=== PATIENT | male | born 1950 | race Caucasian/White ===

== ENCOUNTER 2016-07-29 11:45 | Outpatient (CLI) | payer MEDICARE, BC, OTHER | END 2016-07-29 11:46 | disposition home or self-care (01) | DX: C83.13 Mantle cell lymphoma, intra-abdominal lymph nodes (principal) ==

== ENCOUNTER 2016-08-17 12:06 | Outpatient (CLI) | payer MEDICARE, BC, OTHER | END 2016-08-17 12:07 | disposition home or self-care (01) | DX: C83.13 Mantle cell lymphoma, intra-abdominal lymph nodes (principal) ==

== ENCOUNTER 2016-08-21 11:50 | Outpatient (CLI) | payer MEDICARE, BC, OTHER | END 2016-08-21 11:51 | disposition home or self-care (01) | DX: C83.13 Mantle cell lymphoma, intra-abdominal lymph nodes (principal) ==

== ENCOUNTER 2016-08-25 13:29 | Outpatient (CLI) | payer MEDICARE, BC, OTHER | END 2016-08-25 13:30 | disposition home or self-care (01) | DX: C83.13 Mantle cell lymphoma, intra-abdominal lymph nodes (principal) ==

== ENCOUNTER 2016-08-28 10:57 | Outpatient (CLI) | payer MEDICARE, BC, OTHER | END 2016-08-28 10:58 | disposition home or self-care (01) | DX: C83.13 Mantle cell lymphoma, intra-abdominal lymph nodes (principal) ==

== ENCOUNTER 2016-09-01 15:09 | Outpatient (CLI) | payer MEDICARE, BC, OTHER | END 2016-09-01 15:10 | disposition home or self-care (01) | DX: C83.13 Mantle cell lymphoma, intra-abdominal lymph nodes (principal) ==

== ENCOUNTER 2016-09-04 09:57 | Outpatient (CLI) | payer MEDICARE, BC, OTHER | END 2016-09-04 09:58 | disposition home or self-care (01) | DX: C83.13 Mantle cell lymphoma, intra-abdominal lymph nodes (principal) ==

== ENCOUNTER 2016-09-07 09:45 | Outpatient (CLI) | payer MEDICARE, BC, OTHER ==
[2016-09-07 10:12] LABS: BASOPHILS % (AUTO) 1.5 %; EOSINOPHILS % (AUTO) 2.2 %; HCT - HEMATOCRIT 31.7 % (42.0-52.0); HGB - HEMOGLOBIN 10.9 g/dL (14.0-18.0); LYMPHOCYTES # (AUTO) 0.6 10^3/uL (1.5-3.5); MEAN CORPUSCULAR HEMOGLOBIN 35.8 pg (27.0-31.0); MEAN CORPUSCULAR HGB CONC 34.3 g/dL (32.0-36.0); MEAN CORPUSCULAR VOLUME 104.4 fL (80.0-94.0); MONOCYTES # (AUTO) 0.6 10^3/uL (0.0-1.0); MONOCYTES % (AUTO) 30.2 %; NEUTROPHILS % (AUTO) 33.1 %; NUCLEATED RED BLOOD CELLS AUTO 0.1 /100WBC; RED BLOOD COUNT 3.03 10^6/uL (4.70-6.10); RED CELL DISTRIBUTION WIDTH 16.5 % (12.0-15.0); UNCORRECTED WHITE BLOOD COUNT 1.9 x10^3/uL
[2016-09-07 10:22] LABS: NEUTROPHILS # (AUTO) 0.6 10^3/uL (1.5-6.6); WHITE BLOOD COUNT 1.9 x10^3/uL (4.8-10.8)
== END 2016-09-07 09:46 | disposition home or self-care (01) ==
LOC: LAB 09:45
PROVIDERS: ATTEND Internal Medicine Medical Oncology
DX: C83.13 Mantle cell lymphoma, intra-abdominal lymph nodes (principal)
CPT/HCPCS: 36415; 85025

== ENCOUNTER 2016-09-10 10:21 | Outpatient (CLI) | payer MEDICARE, BC, OTHER | END 2016-09-10 10:22 | disposition home or self-care (01) | DX: C83.13 Mantle cell lymphoma, intra-abdominal lymph nodes (principal) ==

== ENCOUNTER 2016-09-15 10:09 | Outpatient (CLI) | payer MEDICARE, BC, OTHER | END 2016-09-15 10:10 | disposition home or self-care (01) | DX: C83.13 Mantle cell lymphoma, intra-abdominal lymph nodes (principal) ==

== ENCOUNTER 2016-10-02 12:01 | Outpatient (CLI) | payer MEDICARE, BC, OTHER | END 2016-10-02 12:02 | disposition home or self-care (01) | DX: C83.13 Mantle cell lymphoma, intra-abdominal lymph nodes (principal) ==

== ENCOUNTER 2016-10-05 15:21 | Outpatient (CLI) | payer MEDICARE, BC, OTHER | END 2016-10-05 15:22 | disposition home or self-care (01) | DX: C83.13 Mantle cell lymphoma, intra-abdominal lymph nodes (principal) ==

== ENCOUNTER 2016-10-08 10:00 | Outpatient (CLI) | payer MEDICARE, BC, OTHER | END 2016-10-08 10:01 | disposition home or self-care (01) | DX: C83.13 Mantle cell lymphoma, intra-abdominal lymph nodes (principal) ==

== ENCOUNTER 2016-10-12 12:28 | Outpatient (CLI) | payer MEDICARE, BC, OTHER | END 2016-10-12 12:29 | disposition home or self-care (01) | DX: C83.13 Mantle cell lymphoma, intra-abdominal lymph nodes (principal) ==

== ENCOUNTER 2016-12-17 11:17 | Outpatient (CLI) | payer MEDICARE, BC, OTHER ==
--- NOTE | 2016-12-17 19:03 | CT Report ---
CT OF THE SINUSES: 12/17/2016 CLINICAL HISTORY: Chronic sinusitis. TECHNIQUE: Axial, sagittal, and coronal CT was done at 3 x 3 mm intervals. FINDINGS: Moderate degree of mucosal thickening and/or fluid is noted in the right maxillary sinus; 35% of the sinus is opacified by this mucosal thickening and/or fluid. Left maxillary sinus shows fluid and mucosal thickening within it producing 60% to 70% opacification in this sinus. Ethmoidal sinuses demonstrate a moderate amount of mucosal thickening with at least 50% of the sinus opacified. Mucosal thickening is seen in the proximal aspect of each frontal sinus. Sphenoid sinus shows no significant opacification. IMPRESSION: SIGNIFICANT SINUSITIS IS SEEN WITH MOST PRONOUNCED CHANGES RESIDING IN THE MAXILLARY AND ETHMOIDAL SINUSES. In accordance with CT protocol optimization, one or more of the following dose reduction techniques were utilized for this exam: automated exposure control, adjustment of mA and/or KV based on patient size, or use of iterative reconstructive technique. COMMENT: REPORT WAS FAXED TO PATIENT'S HEALTHCARE PROVIDER ON 12/18/2016 AT 8 AM. JOB #: [id number] EXT JOB #: [id number] LATISHA
== END 2016-12-17 11:18 | disposition home or self-care (01) ==
LOC: DI 11:17
PROVIDERS: ATTEND Family Medicine
DX: J32.0 Chronic maxillary sinusitis (principal); J32.2 Chronic ethmoidal sinusitis
CPT/HCPCS: 70486

== ENCOUNTER 2017-05-22 16:15 | Emergency (ER) | payer MEDICARE, BC, OTHER ==
[2017-05-22] MEDS ORDERED: SODIUM CHLORIDE 0.9% 1,000 ML IV ONE ×2 (17:16→18:49)
[2017-05-22] MEDS ORDERED: ONDANSETRON 4 MG/2 ML VIAL IVP STA (17:16)
[2017-05-22 17:24] LABS: BASOPHILS % (AUTO) 0.4 %; EOSINOPHILS # (AUTO) 0.1 10^3/uL (0.0-0.7); EOSINOPHILS % (AUTO) 1.2 %; HCT - HEMATOCRIT 38.5 % (42.0-52.0); LYMPHOCYTES # (AUTO) 0.6 10^3/uL (1.5-3.5); MEAN CORPUSCULAR HEMOGLOBIN 33.8 pg (27.0-31.0); MEAN CORPUSCULAR HGB CONC 33.7 g/dL (32.0-36.0); MEAN CORPUSCULAR VOLUME 100.1 fL (80.0-94.0); MEAN PLATELET VOLUME 6.5 fL (7.4-11.4); MONOCYTES # (AUTO) 0.6 10^3/uL (0.0-1.0); MONOCYTES % (AUTO) 10.8 %; NEUTROPHILS # (AUTO) 4.6 10^3/uL (1.5-6.6); NEUTROPHILS % (AUTO) 77.6 %; NUCLEATED RED BLOOD CELLS AUTO 0.1 /100WBC; RED BLOOD COUNT 3.85 10^6/uL (4.70-6.10); RED CELL DISTRIBUTION WIDTH 13.4 % (12.0-15.0)
--- NOTE | 2017-05-22 17:25 | ED Physician Documentation ---
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 denies: Diarrhea Endocrine: denies: Easy bruising / bleeding Immunocompromised: denies: Immunocompromised PD PAST MEDICAL HISTORY - Past Medical History Cardiovascular: None Respiratory: None Neuro: None Endocrine/Autoimmune: None GI: Other : None HEENT: None Psych: None Musculoskeletal: None Derm: None - Past Surgical History Past Surgical History: Yes HEENT: Tonsil/Adenoidectomy - Present Medications Home Medications: Ambulatory Orders Medication Instructions Recorded Confirmed Valacyclovir HCl [Valtrex] 500 mg PO BID 12/18/15 05/22/17 Calcium Phos/Vit D3/Mag Oxide 1 tab ORAL DAILY 01/07/17 05/22/17 [Posture-D Caplet] Cholecalciferol (Vitamin D3) 2,000 unit ORAL DAILY 01/07/17 05/22/17 [Vitamin D3] Multivitamin [Multiple Vitamins] 1 tab ORAL DAILY 01/07/17 05/22/17 Cetirizine [ZyrTEC] 10 mg PO DAILY 01/15/17 05/22/17 Fluticasone [Flonase] 1 sprays [place] DAILY 01/15/17 05/22/17 Mupirocin Calcium [Bactroban Nasal] 1 applic [place] DAILY 01/15/17 05/22/17 Pseudoephedrine [Sudafed] 30 mg PO Q6H PRN 01/15/17 05/22/17 guaiFENesin/CODEINE [Robitussin AC] 10 ml PO Q6H PRN 01/15/17 05/22/17 - Allergies Allergies/Adverse Reactions: Allergies Allergy/AdvReac Type Severity Reaction Status Date / Time Penicillins Allergy Edema Verified 05/22/17 16:23 levofloxacin [From Levaquin] AdvReac Nausea Verified 05/22/17 16:23 hazelnuts Allergy Edema Uncoded 05/22/17 16:23 - Social History Does the pt smoke?: No Smoking Status: Never smoker Does the pt drink ETOH?: Yes Does the pt have substance abuse?: No - Immunizations Immunizations are current?: Yes PD ED PE NORMAL - Vitals Vital signs reviewed: Yes - General General: Alert and oriented X 3 - HEENT HEENT: PERRL - Neck Neck: Supple, no meningeal sign - Cardiac Cardiac: RRR - Respiratory Respiratory: No respiratory distress, Clear bilaterally - Abdomen Abdomen: Other (+ BS, minimally distended, some mid abd TTP s rebound or guarding, no pulsatile mass) - Derm Derm: Normal color - Neuro Neuro: Alert and oriented X 3 - Psych Psych: Normal mood Results - Vitals Vitals: Vital Signs - 24 hr 05/22/17 05/22/17 16:17 18:55 Temperature 36.0 C L Heart Rate 82 74 Respiratory 16 18 Rate Blood Pressure 122/82 H 141/88 H O2 Saturation 97 100 Oxygen O2 Source Room air - Labs Labs: Laboratory Tests 05/22/17 05/22/17 05/22/17 17:16 17:16 17:19 WBC 6.0 RBC 3.85 L Hgb 13.0 L Hct 38.5 L MCV 100.1 H MCH 33.8 H MCHC 33.7 RDW 13.4 Plt Count 319 MPV 6.5 L Neut # 4.6 Lymph # 0.6 L [place] # 0.6 Eos # 0.1 Baso # 0.0 Absolute Nucleated RBC 0.01 Nucleated RBC % 0.1 Sodium 133 L Potassium 4.1 Chloride 98 L Carbon Dioxide 26 Anion Gap 9.0 BUN 18 Creatinine 1.0 Estimated GFR (MDRD) 74 L Glucose 119 H Calcium 8.9 Total Bilirubin 0.7 AST 21 ALT 19 Alkaline Phosphatase 67 Total Protein 6.5 L Albumin 3.5 Globulin 3.0 Albumin/Globulin Ratio 1.2 Lipase 14 L Urine Color YELLOW Urine Clarity CLEAR Urine pH 6.0 Ur Specific [place] >=1.030 H Urine Protein TRACE Urine Glucose (UA) NEGATIVE Urine Ketones 40 H Urine Occult Blood NEGATIVE Urine Nitrite NEGATIVE Urine Bilirubin NEGATIVE Urine Urobilinogen 0.2 (NORMAL) Ur Leukocyte Esterase NEGATIVE Ur Microscopic Review NOT INDICATED Urine Culture Comments NOT INDICATED - Rads (name of study) CT AP Radiology: See rad report (large soft tissue mass anterior upper pelvis 10X 4.2 X 8.3 cm with associated small bowel obstruction and trace ascites) PD MEDICAL DECISION MAKING - ED course ED course: spoke to [facility] research nutritionist Dr Khan who rec admit to hospitalist service so also spoke with [facility] hospitalist Dr Lackey and he accepts pt in transfer [facility] completed pt has NG in and he and family have been updated Departure - Departure Disposition: 02 Transfer Acute Care Hosp Clinical Impression: Small bowel obstruction Abdominal mass Qualifiers: Abdominal location: unspecified location Qualified Code(s): R19.00 - Intra- abdominal and pelvic swelling, mass and lump, unspecified site Condition: Fair
[2017-05-22 17:29] LABS: BILIRUBIN,URINE NEGATIVE (NEGATIVE)
[2017-05-22 17:31] LABS: UA CHARGE (STRIP ONLY) YES; UR CULTURE IF IND NOT INDICATED
[2017-05-22] MEDS ORDERED: ONDANSETRON 4 MG/2 ML VIAL ONE (17:31)
[2017-05-22 17:40] LABS: ALBUMIN/GLOBULIN RATIO 1.2 (1.0-2.2); BILIRUBIN,TOTAL 0.7 mg/dL (0.2-1.0); CALCIUM 8.9 mg/dL (8.5-10.3); POTASSIUM 4.1 mmol/L (3.5-5.0); TOTAL PROTEIN 6.5 g/dL (6.7-8.2)
--- NOTE | 2017-05-22 18:28 | CT Preliminary Report ---
Exam: CT ABDOMEN/PELVIS W/O IMPRESSION: Large soft tissue mass in the anterior upper pelvis 10.0 x 4.2 x 8.3 cm with associated mid small bowel obstruction and trace ascites. [facility] SITE ID: [id number]
--- NOTE | 2017-05-22 18:30 | CT Report ---
EXAM: CT ABDOMEN AND PELVIS EXAM DATE: 05/22/2017 06:08 PM. CLINICAL HISTORY: Abdomen pain. Nausea and vomiting. History of tumor with small bowel obstruction. COMPARISONS: 03/31/2016. TECHNIQUE: Routine helical CT imaging was performed through the abdomen and pelvis. IV contrast: None . Enteric contrast: No. Reconstructions: Coronal and sagittal. In accordance with CT protocol optimization, one or more of the following dose reduction techniques w ere utilized for this exam: automated exposure control, adjustment of mA and/or KV based on patient s ize, or use of iterative reconstructive technique. FINDINGS: Lung Bases: Unremarkable. Liver: Normal. No masses. Gallbladder/Bile Ducts: Unremarkable. Spleen: Normal. Pancreas: Normal. Adrenal Glands: Normal. Kidneys: Normal. No masses or hydronephrosis. Peritoneal Cavity/Bowel: Trace free fluid. No free air. Large soft tissue mass in the upper pelvis 10 .0 x 4.2 x 8.3 cm with associated small bowel obstruction. Mildly enlarged right lower quadrant mesen teric lymph nodes. Nonvisualized appendix. Pelvic Organs: The prostate and bladder are unremarkable. Vasculature: No aneurysms or other significant abnormality. Bones: No significant abnormality. Other: None. IMPRESSION: Large soft tissue mass in the anterior upper pelvis with associated mid small bowel obstr uction and trace ascites. [facility] Referring Provider Line: [phone] SITE ID: [id number]
[2017-05-22 20:26] VITALS: BP 143/79
== END 2017-05-22 20:26 | disposition short-term general hospital (02) ==
LOC: ED 16:15
DX: K56.609 Unspecified intestinal obstruction, unspecified as to partial versus complete obstruction (principal); R19.00 Intra-abdominal and pelvic swelling, mass and lump, unspecified site
CPT/HCPCS: 36415; 74176; 80053; 81001; 81003; 83690; 85025; 87086; 96361; 96374; 99284

== ENCOUNTER 2017-06-09 10:43 | Outpatient (CLI) | payer MEDICARE, BC, OTHER ==
[2017-06-09 11:07] LABS: BASOPHILS % (AUTO) 0.8 %; EOSINOPHILS % (AUTO) 1.4 %; HCT - HEMATOCRIT 30.4 % (42.0-52.0); HGB - HEMOGLOBIN 10.2 g/dL (14.0-18.0); LYMPHOCYTES # (AUTO) 0.4 10^3/uL (1.5-3.5); LYMPHOCYTES % (AUTO) 13.8 %; MEAN CORPUSCULAR HEMOGLOBIN 33.8 pg (27.0-31.0); MEAN CORPUSCULAR HGB CONC 33.6 g/dL (32.0-36.0); MEAN CORPUSCULAR VOLUME 100.6 fL (80.0-94.0); MEAN PLATELET VOLUME 8.2 fL (7.4-11.4); MONOCYTES # (AUTO) 0.2 10^3/uL (0.0-1.0); MONOCYTES % (AUTO) 6.8 %; NEUTROPHILS # (AUTO) 2.4 10^3/uL (1.5-6.6); NEUTROPHILS % (AUTO) 77.2 %; NUCLEATED RED BLOOD CELLS AUTO 0.1 /100WBC; RED BLOOD COUNT 3.02 10^6/uL (4.70-6.10); RED CELL DISTRIBUTION WIDTH 12.8 % (12.0-15.0); UNCORRECTED WHITE BLOOD COUNT 3.2 x10^3/uL; WHITE BLOOD COUNT 3.2 x10^3/uL (4.8-10.8)
[2017-06-09 11:29] LABS: PLATELET ESTIMATE, MANUAL DECREASED (<130,000) (NORMAL)
== END 2017-06-09 10:44 | disposition home or self-care (01) ==
LOC: LAB 10:43
PROVIDERS: ATTEND Internal Medicine Medical Oncology
DX: C83.13 Mantle cell lymphoma, intra-abdominal lymph nodes (principal)
CPT/HCPCS: 36415; 85025

== ENCOUNTER 2017-06-14 11:32 | Outpatient (CLI) | payer MEDICARE, BC, OTHER ==
[2017-06-14 12:28] LABS: BASOPHILS % (AUTO) 0.2 %; EOSINOPHILS % (AUTO) 0.6 %; HGB - HEMOGLOBIN 10.2 g/dL (14.0-18.0); LYMPHOCYTES # (AUTO) 0.7 10^3/uL (1.5-3.5); LYMPHOCYTES % (AUTO) 20.4 %; MEAN PLATELET VOLUME 8.6 fL (7.4-11.4); MONOCYTES # (AUTO) 0.5 10^3/uL (0.0-1.0); MONOCYTES % (AUTO) 15.3 %; NEUTROPHILS # (AUTO) 2.2 10^3/uL (1.5-6.6); NEUTROPHILS % (AUTO) 63.5 %; NUCLEATED RED BLOOD CELLS AUTO 0.1 /100WBC; RED CELL DISTRIBUTION WIDTH 12.8 % (12.0-15.0); UNCORRECTED WHITE BLOOD COUNT 3.4 x10^3/uL; WHITE BLOOD COUNT 3.4 x10^3/uL (4.8-10.8)
[2017-06-14 12:45] LABS: PLATELET ESTIMATE, MANUAL DECREASED (<130,000) (NORMAL); PLATELET MORPHOLOGY NORMAL APPEARANCE (NORMAL)
== END 2017-06-14 11:33 | disposition home or self-care (01) ==
LOC: LAB 11:32
PROVIDERS: ATTEND Internal Medicine Medical Oncology
DX: C83.13 Mantle cell lymphoma, intra-abdominal lymph nodes (principal)
CPT/HCPCS: 36415; 85025

== ENCOUNTER 2017-06-21 11:44 | Outpatient (CLI) | payer MEDICARE, BC, OTHER ==
[2017-06-21 12:19] LABS: BASOPHILS % (AUTO) 0.5 %; EOSINOPHILS % (AUTO) 0.8 %; HCT - HEMATOCRIT 30.7 % (42.0-52.0); HGB - HEMOGLOBIN 10.7 g/dL (14.0-18.0); LYMPHOCYTES # (AUTO) 0.8 10^3/uL (1.5-3.5); LYMPHOCYTES % (AUTO) 19.6 %; MEAN CORPUSCULAR HEMOGLOBIN 34.7 pg (27.0-31.0); MEAN CORPUSCULAR HGB CONC 34.8 g/dL (32.0-36.0); MEAN CORPUSCULAR VOLUME 99.8 fL (80.0-94.0); MEAN PLATELET VOLUME 6.9 fL (7.4-11.4); MONOCYTES # (AUTO) 0.8 10^3/uL (0.0-1.0); MONOCYTES % (AUTO) 20.1 %; NEUTROPHILS # (AUTO) 2.3 10^3/uL (1.5-6.6); NUCLEATED RED BLOOD CELLS AUTO 0.3 /100WBC; RED BLOOD COUNT 3.07 10^6/uL (4.70-6.10); RED CELL DISTRIBUTION WIDTH 13.6 % (12.0-15.0); UNCORRECTED WHITE BLOOD COUNT 3.9 x10^3/uL; WHITE BLOOD COUNT 3.9 x10^3/uL (4.8-10.8)
== END 2017-06-21 11:45 | disposition home or self-care (01) ==
LOC: LAB 11:44
PROVIDERS: ATTEND Internal Medicine Medical Oncology
DX: C83.13 Mantle cell lymphoma, intra-abdominal lymph nodes (principal)
CPT/HCPCS: 36415; 85025

== ENCOUNTER 2017-07-12 10:30 | Outpatient (CLI) | payer MEDICARE, BC, OTHER ==
[2017-07-12 10:58] LABS: BASOPHILS % (AUTO) 0.6 %; EOSINOPHILS % (AUTO) 0.8 %; HCT - HEMATOCRIT 27.7 % (42.0-52.0); HGB - HEMOGLOBIN 9.5 g/dL (14.0-18.0); LYMPHOCYTES # (AUTO) 0.6 10^3/uL (1.5-3.5); LYMPHOCYTES % (AUTO) 11.7 %; MEAN CORPUSCULAR HEMOGLOBIN 34.7 pg (27.0-31.0); MEAN CORPUSCULAR HGB CONC 34.4 g/dL (32.0-36.0); MEAN CORPUSCULAR VOLUME 100.9 fL (80.0-94.0); MEAN PLATELET VOLUME 8.1 fL (7.4-11.4); MONOCYTES # (AUTO) 0.6 10^3/uL (0.0-1.0); MONOCYTES % (AUTO) 10.9 %; NEUTROPHILS # (AUTO) 3.9 10^3/uL (1.5-6.6); NUCLEATED RED BLOOD CELLS AUTO 0.2 /100WBC; RED BLOOD COUNT 2.74 10^6/uL (4.70-6.10); RED CELL DISTRIBUTION WIDTH 17.4 % (12.0-15.0); UNCORRECTED WHITE BLOOD COUNT 5.2 x10^3/uL; WHITE BLOOD COUNT 5.2 x10^3/uL (4.8-10.8)
== END 2017-07-12 10:31 | disposition home or self-care (01) ==
LOC: LAB 10:30
PROVIDERS: ATTEND Internal Medicine Medical Oncology
DX: C83.13 Mantle cell lymphoma, intra-abdominal lymph nodes (principal)
CPT/HCPCS: 36415; 85025

== ENCOUNTER 2017-07-15 11:39 | Outpatient (CLI) | payer MEDICARE, BC, OTHER ==
[2017-07-15 11:52] LABS: BASOPHILS % (AUTO) 0.6 %; EOSINOPHILS # (AUTO) 0.1 10^3/uL (0.0-0.7); EOSINOPHILS % (AUTO) 1.2 %; HCT - HEMATOCRIT 29.5 % (42.0-52.0); LYMPHOCYTES # (AUTO) 0.7 10^3/uL (1.5-3.5); LYMPHOCYTES % (AUTO) 10.9 %; MEAN CORPUSCULAR HEMOGLOBIN 34.5 pg (27.0-31.0); MEAN CORPUSCULAR VOLUME 101.3 fL (80.0-94.0); MEAN PLATELET VOLUME 8.1 fL (7.4-11.4); MONOCYTES # (AUTO) 0.6 10^3/uL (0.0-1.0); MONOCYTES % (AUTO) 10.2 %; NEUTROPHILS # (AUTO) 4.6 10^3/uL (1.5-6.6); NEUTROPHILS % (AUTO) 77.1 %; RED BLOOD COUNT 2.91 10^6/uL (4.70-6.10); RED CELL DISTRIBUTION WIDTH 17.2 % (12.0-15.0)
== END 2017-07-15 11:40 | disposition home or self-care (01) ==
LOC: LAB 11:39
PROVIDERS: ATTEND Internal Medicine Medical Oncology
DX: C83.13 Mantle cell lymphoma, intra-abdominal lymph nodes (principal)
CPT/HCPCS: 36415; 85025

== ENCOUNTER 2017-07-22 11:53 | Outpatient (CLI) | payer MEDICARE, BC, OTHER ==
[2017-07-22 12:10] LABS: BASOPHILS % (AUTO) 0.7 %; EOSINOPHILS # (AUTO) 0.1 10^3/uL (0.0-0.7); HCT - HEMATOCRIT 31.8 % (42.0-52.0); HGB - HEMOGLOBIN 10.8 g/dL (14.0-18.0); LYMPHOCYTES # (AUTO) 0.7 10^3/uL (1.5-3.5); LYMPHOCYTES % (AUTO) 12.7 %; MEAN CORPUSCULAR HEMOGLOBIN 34.8 pg (27.0-31.0); MEAN CORPUSCULAR HGB CONC 33.9 g/dL (32.0-36.0); MEAN CORPUSCULAR VOLUME 102.6 fL (80.0-94.0); MEAN PLATELET VOLUME 7.2 fL (7.4-11.4); MONOCYTES # (AUTO) 0.9 10^3/uL (0.0-1.0); MONOCYTES % (AUTO) 16.5 %; NEUTROPHILS # (AUTO) 3.8 10^3/uL (1.5-6.6); NEUTROPHILS % (AUTO) 69.1 %; RED CELL DISTRIBUTION WIDTH 19.6 % (12.0-15.0); UNCORRECTED WHITE BLOOD COUNT 5.5 x10^3/uL; WHITE BLOOD COUNT 5.5 x10^3/uL (4.8-10.8)
== END 2017-07-22 11:54 | disposition home or self-care (01) ==
LOC: LAB 11:53
PROVIDERS: ATTEND Internal Medicine Medical Oncology
DX: C83.13 Mantle cell lymphoma, intra-abdominal lymph nodes (principal)
CPT/HCPCS: 36415; 85025

== ENCOUNTER 2017-12-08 09:22 | Outpatient (CLI) | payer MEDICARE, BC, OTHER | END 2017-12-08 09:23 | disposition critical access hospital (66) | LOC: EMS 09:22 | PROVIDERS: ATTEND Surgery | DX: R10.31 Right lower quadrant pain (principal); R53.1 Weakness; R41.0 Disorientation, unspecified | CPT/HCPCS: A0425; A0429 ==

== ENCOUNTER 2017-12-08 09:54 | Inpatient (IN) | payer MEDICARE, BC, OTHER ==
[2017-12-08] MEDS ORDERED: MORPHINE 2 MG/ML SYRINGE IVP STA ×4 (10:02→15:27)
[2017-12-08] MEDS ORDERED: SODIUM CHLORIDE 0.9% 1,000 ML IV ONE ×3 (10:02→21:40)
--- NOTE | 2017-12-08 10:05 | ED Physician Documentation ---
History of Present Illness - Stated complaint Stated Complaint: AMS - Additonal information Additional information: hx from EMS and EMR 67 male hx abd mantle tumors, hx SBO 2.2 same, gets care at [facility] Dr Krueger, has failed chemo and is on experimental biologics was at [facility] yesterday for tx and was doing well went home and was fine overnight developed abd pain and AMS no reported fever NVD pt does not known his medical problems or present medications EMS does not have that info is en route Review of Systems Constitutional: denies: Fever Cardiac: denies: Chest pain / pressure Respiratory: denies: Dyspnea GI: reports: Abdominal Pain. denies: Nausea, Vomiting, Diarrhea : denies: Dysuria Immunocompromised: reports: Immunocompromised (maybe - not sure if he is getting chemo) PD PAST MEDICAL HISTORY - Past Medical History Cardiovascular: None Respiratory: None Endocrine/Autoimmune: None GI: Other : None HEENT: None Psych: None Musculoskeletal: None Derm: None - Past Surgical History Past Surgical History: Yes HEENT: Tonsil/Adenoidectomy - Present Medications Home Medications: Ambulatory Orders Medication Instructions Recorded Confirmed Valacyclovir HCl [Valtrex] 500 mg PO BID 12/18/15 12/08/17 Allopurinol [Allopurinol] 300 mg PO DAILY 12/08/17 12/08/17 Dexamethasone [Dexamethasone] 4 mg PO BID 12/08/17 12/08/17 - Allergies Allergies/Adverse Reactions: Allergies Allergy/AdvReac Type Severity Reaction Status Date / Time Penicillins Allergy Edema Verified 05/22/17 16:23 levofloxacin [From Levaquin] AdvReac Nausea Verified 05/22/17 16:23 hazelnuts Allergy Edema Uncoded 05/22/17 16:23 - Social History Does the pt smoke?: No Smoking Status: Never smoker Does the pt drink ETOH?: Yes Does the pt have substance abuse?: No - Immunizations Immunizations are current?: Yes PD ED PE NORMAL - Vitals Vital signs reviewed: Yes - General General: No: Alert and oriented X 3 (confused, does not know his medical problems) - HEENT HEENT: Other (crani scar, possible [employer] shutn R side) - Cardiac Cardiac: RRR - Respiratory Respiratory: No respiratory distress - Abdomen Abdomen: Other (mod distended, diffusely tender, no rigid, no pulsatile mass) - Derm Derm: Normal color - Neuro Neuro: No motor deficit. No: Alert and oriented X 3 Results - Vitals Vitals: Vital Signs - 24 hr 12/08/17 12/08/17 12/08/17 09:54 12:18 12:33 Temperature 37 C 37.2 C Heart Rate 124 H 130 H 130 H Respiratory 18 19 17 Rate Blood Pressure 115/75 102/66 112/70 O2 Saturation 94 95 93 12/08/17 12/08/17 12/08/17 13:19 13:48 14:43 Temperature Heart Rate 130 H 127 H 127 H Respiratory 18 18 16 Rate Blood Pressure 109/71 138/73 H 106/65 O2 Saturation 92 92 92 Oxygen O2 Source Room air - Labs Labs: Laboratory Tests 12/08/17 12/08/17 12/08/17 10:20 10:20 11:10 WBC 5.5 RBC 4.02 L Hgb 13.6 L Hct 39.8 L MCV 98.9 H MCH 33.7 H MCHC 34.1 RDW 17.3 H Plt Count 186 MPV 7.6 Neut # 4.2 Lymph # 1.2 L [place] # 0.2 Eos # 0.0 Baso # 0.0 Absolute Nucleated RBC 0.01 Nucleated RBC % 0.1 Sodium 126 L Potassium 4.4 Chloride 88 L Carbon Dioxide 25 Anion Gap 13.0 BUN 31 H Creatinine 1.0 Estimated GFR (MDRD) 74 L Glucose 127 H Lactic Acid Calcium 8.7 Total Bilirubin 0.9 AST 34 ALT 30 Alkaline Phosphatase 62 Total Protein 6.0 L Albumin 3.1 L Globulin 2.9 Albumin/Globulin Ratio 1.1 Lipase 44 Urine Color DARK YELLOW Urine Clarity CLEAR Urine pH 5.5 Ur Specific [place] >=1.030 H Urine Protein TRACE Urine Glucose (UA) NEGATIVE Urine Ketones NEGATIVE Urine Occult Blood NEGATIVE Urine Nitrite NEGATIVE Urine Bilirubin NEGATIVE Urine Urobilinogen 0.2 (NORMAL) Ur Leukocyte Esterase NEGATIVE Ur Microscopic Review NOT INDICATED Urine Culture Comments NOT INDICATED 12/08/17 12:52 WBC RBC Hgb Hct MCV MCH MCHC RDW Plt Count MPV Neut # Lymph # [place] # Eos # Baso # Absolute Nucleated RBC Nucleated RBC % Sodium Potassium Chloride Carbon Dioxide Anion Gap BUN Creatinine Estimated GFR (MDRD) Glucose Lactic Acid 4.3 H* Calcium Total Bilirubin AST ALT Alkaline Phosphatase Total Protein Albumin Globulin Albumin/Globulin Ratio Lipase Urine Color Urine Clarity Urine pH Ur Specific [place] Urine Protein Urine Glucose (UA) Urine Ketones Urine Occult Blood Urine Nitrite Urine Bilirubin Urine Urobilinogen Ur Leukocyte Esterase Ur Microscopic Review Urine Culture Comments - Rads (name of study) CT AP Radiology: See rad report (large masses abd enalrged since last Apr and with and large cavitating mass perf to right ant mid abdomen with large amt free air) PD MEDICAL DECISION MAKING - ED course ED course: pt presented with s/sx c/w prior SBO got AAS then CT identified as having a perf and thus likely septic at 1220 lactate blood cx and ab ordered at that time - /2 allergies gave cefoxitin and flagyl s adverse effect spoke to [facility] surgery Dr Whitten at 1225 - he is in OR in a case now and will come see pt but rec trying to transfer to [facility] if pt can be stabilized pt seen by Dr Whitten who advises this is inoperable will need to tx with antibiotics spoke to pts oncologist Dr Krueger who like pt transferred to [facility] transfer Center states [facility] is full Dr Krueger advises pt is a priority to be transferred when bed available but in mean time will, admit to [facility] Dr Chepe heath to admit pt updated to gravity of this situation - inoperable ruptured bowel,and that pt is septic, and that he may , that she should call family to come spend time with him Departure - Departure Disposition: 66 [facility] DC/Xfer Clinical Impression: Bowel perforation Sepsis Qualifiers: Sepsis type: sepsis due to unspecified organism Qualified Code(s): A41.9 - Sepsis, unspecified organism Abdominal mass Qualifiers: Abdominal location: other location Qualified Code(s): R19.09 - Other intra- abdominal and pelvic swelling, mass and lump Condition: Serious
[2017-12-08 10:38] LABS: BASOPHILS % (AUTO) 0.2 %; EOSINOPHILS % (AUTO) 0.1 %; HGB - HEMOGLOBIN 13.6 g/dL (14.0-18.0); LYMPHOCYTES # (AUTO) 1.2 10^3/uL (1.5-3.5); LYMPHOCYTES % (AUTO) 20.8 %; MEAN CORPUSCULAR HEMOGLOBIN 33.7 pg (27.0-31.0); MEAN CORPUSCULAR HGB CONC 34.1 g/dL (32.0-36.0); MEAN CORPUSCULAR VOLUME 98.9 fL (80.0-94.0); MEAN PLATELET VOLUME 7.6 fL (7.4-11.4); MONOCYTES # (AUTO) 0.2 10^3/uL (0.0-1.0); MONOCYTES % (AUTO) 3.5 %; NEUTROPHILS # (AUTO) 4.2 10^3/uL (1.5-6.6); NEUTROPHILS % (AUTO) 75.4 %; PLT - PLATELET COUNT 186 10^3/uL (130-450); RED BLOOD COUNT 4.02 10^6/uL (4.70-6.10); RED CELL DISTRIBUTION WIDTH 17.3 % (12.0-15.0); WHITE BLOOD COUNT 5.5 x10^3/uL (4.8-10.8)
[2017-12-08 10:51] LABS: ALBUMIN 3.1 g/dL (3.2-5.5); ALBUMIN/GLOBULIN RATIO 1.1 (1.0-2.2); BILIRUBIN,TOTAL 0.9 mg/dL (0.2-1.0); CALCIUM 8.7 mg/dL (8.5-10.3)
--- NOTE | 2017-12-08 11:25 | XRAY Preliminary Report ---
Exam: XR ABDOMEN 2 VIEW X-RAY IMPRESSION: 1. Multiple dilated small bowel loops, suspicious for small bowel obstruction. 2. Free air or abnormal collections of intra-abdominal gas cannot be excluded, as discussed above. CT imaging with contrast is recommended for further evaluation. MUKESH The above findings were discussed with Sheron Lord by Dr. Crow Wise at 11:20 hrs on 12/08/17. SITE ID: [id number]
--- NOTE | 2017-12-08 11:25 | XRAY Report ---
EXAM: ABDOMEN RADIOGRAPHY EXAM DATE: 12/08/2017 11:00 AM. CLINICAL HISTORY: Abd pain hx tumor with SBO. COMPARISON: No abdomen x-ray comparison. CT abdomen 05/22/2017. 2 view chest 05/23/2017. TECHNIQUE: 2 views. FINDINGS: Lung Bases: Unremarkable. Bowel Gas Pattern: Multiple dilated small bowel loops, left greater than right, with mild colonic gas and moderate stool. This is suspicious for small bowel obstruction. Free Air: The upright view does not fully include the hemidiaphragms and accurate evaluation for free air cannot be made. There is moderate gas partially demonstrated beneath the right hemidiaphragm wit h associated apparent air-fluid level. This may simply represent interposed bowel but free air is not excluded. The prior chest x-ray did not demonstrate comparable interposed gas containing bowel. The CT exam demonstrated some bowel projecting anterior to the liver but not over the dome of the liver. There is also some focal gas projecting over the lateral aspect of the liver and also to the right, p araspinal region which could be within bowel but is somewhat atypical and abnormal air collection, fr ee air or pneumobilia cannot be excluded. Other: Mild Levoconvexity lumbar curvature and degenerative disease. IMPRESSION: 1. Multiple dilated small bowel loops, suspicious for small bowel obstruction. 2. Free air or abnormal collections of intra-abdominal gas cannot be excluded, as discussed above. CT imaging with contrast is recommended for further evaluation. [facility] The above findings were discussed with Sheron Lord by Dr. Crow Wise at 11:20 hrs on 12/08/17. Referring Provider Line: [phone] SITE ID: [id number]
[2017-12-08] MEDS ORDERED: IOPAMIDOL-300 100 ML VIAL ONE (11:41)
[2017-12-08] MEDS ORDERED: IOPAMIDOL-300 50 ML VIAL ONE (11:41)
[2017-12-08 11:59] LABS: BILIRUBIN,URINE NEGATIVE (NEGATIVE); GLUCOSE, URINE (UA) NEGATIVE (NEGATIVE); KETONES,URINE (UA) NEGATIVE (NEGATIVE); LEUKOCYTE ESTERASE, URINE NEGATIVE (NEGATIVE); NITRITE,URINE NEGATIVE (NEGATIVE); OCCULT BLOOD,URINE NEGATIVE (NEGATIVE); PH,URINE 5.5 PH (5.0-7.5); PROTEIN,URINE TRACE mg/dL (NEGATIVE); UROBILINOGEN,URINE 0.2 (NORMAL) E.U./dL (NORMAL)
[2017-12-08 12:08] LABS: CLARITY,URINE CLEAR (CLEAR)
[2017-12-08] MEDS ORDERED: SODIUM CHLORIDE 0.9% 2,000 ML IV ONE (12:16)
[2017-12-08] MEDS ORDERED: cefOXitin 1 GM in SODIUM CHLORIDE 0.9% MINIBAG 100 ML IV STA (12:22)
--- NOTE | 2017-12-08 12:47 | CT Preliminary Report ---
Exam: CT ABDOMEN/PELVIS W/ IMPRESSION: 1. Extensive pneumoperitoneum and intra-abdominal free fluid largely in the right mid and upper abdom en with enhancement of the peritoneum. 2. Significant increase in size of intra-abdominal cavitating masses compared to 05/19/2017 involving small bowel loops. Defect involving the right mid abdominal mass which surrounds and involves a righ t mid abdominal small bowel loop is the site of perforation. 3. Extensive peritoneal thickening throughout the abdomen and pelvis with multiple enlarged mesenteri c lymph nodes. [facility] SITE ID: [id number]
[2017-12-08] MEDS: metroNIDAZOLE 500 MG/100 ML 500 MG/100 ML BAG IV SCH ×5 (13:00→23:46)
--- NOTE | 2017-12-08 13:30 | CT Report ---
EXAM: CT ABDOMEN AND PELVIS EXAM DATE: 12/08/2017 12:03 PM. CLINICAL HISTORY: Abdominal pain, known tumor, SBO, possible perforation on plain. COMPARISONS: 05/22/2017. 03/31/2016. 12/08/2017. TECHNIQUE: Routine helical CT imaging was performed through the abdomen and pelvis. IV contrast: 100 mL Isovue-300. Enteric contrast: No. Reconstructions: Coronal and sagittal. In accordance with CT protocol optimization, one or more of the following dose reduction techniques w ere utilized for this exam: automated exposure control, adjustment of mA and/or KV based on patient s ize, or use of iterative reconstructive technique. FINDINGS: Lung Bases: Bibasilar scar/atelectasis. Included portions of the heart are unremarkable. Catheter/tatianna d present within the SVC. Liver: Liver enhances homogeneously. No hepatic lesions. Gallbladder/Bile Ducts: Unremarkable. Spleen: Normal. Pancreas: Parenchymal volume loss. No peripancreatic edema. Adrenal Glands: Normal. Kidneys: Kidneys enhance symmetrically. No hydronephrosis. No nephrolithiasis. Peritoneal Cavity/Bowel: Free air is seen in the abdomen largely in the anterior and superior abdomen with right mid abdominal free fluid largely in the right upper quadrant and right mid abdomen along the margins of the liver. Free fluid is seen also in the mesentery and left lower quadrant. There is mesenteric edema. Since 05/22/2017, there has been significant increase in size in the multiple intr a-abdominal soft tissue masses, with the largest right mid abdominal mass now measuring 15.6 x 12.5 x 14.7 cm, which is cavitating and thick-walled, and surrounds a loop of bowel seen in the right mid a bdomen. There is a defect seen along the right anterior aspect seen on image 55 consistent with a foc al area of perforation in the origin of the pneumoperitoneum. The right lower abdominal mass has also increased in size, measuring 7.8 x 7.1 x 6.3 cm. Other smaller masses seen in the mesentery with ext ensive adenopathy seen throughout the mesentery. Nodularity and thickening is seen of the peritoneum throughout, largely on the right extending into the pelvis. Appendix is not visualized. Small volume of stool is seen in the colon. Diverticula are seen in the colon. Pelvic Organs: Thickening and nodularity of the peritoneum in the pelvis. Urinary bladder is only mil dly distended. Thickening and nodularity is seen of the peritoneum extending into a right inguinal he rnia. Vasculature: Atherosclerotic calcified plaque. No dissection or aneurysm. Bones: Degenerative changes of the lower thoracic and lumbar spine. Lumbar facet arthropathy. Mild le voscoliosis of the lumbar spine. Other: None. IMPRESSION: 1. Extensive pneumoperitoneum and intraabdominal free fluid, largely in the right mid and upper abdom en, with enhancement of the peritoneum. 2. Significant increase in size of intraabdominal cavitating soft tissue masses compared to 7 involving small bowel loops. Defect involving the right mid abdominal mass, which surrounds and inv olves a right mid abdominal small bowel loop which is the site and origin of perforation. 3. Extensive peritoneal thickening throughout the abdomen and pelvis with multiple enlarged mesenteri c lymph nodes. Findings discussed with Dr. Lord following the study on 12/08/2017. [facility] Referring Provider Line: [phone] SITE ID: [id number]
[2017-12-08] MEDS ORDERED: IOPAMIDOL-300 100 ML VIAL IVP ONE (15:17)
[2017-12-08] MEDS ORDERED: ACETAMINOPHEN 325 MG TABLET PO PRN (15:46)
[2017-12-08] MEDS ORDERED: ONDANSETRON ODT 4 MG TABLET TL PRN (15:46)
[2017-12-08] MEDS ORDERED: ONDANSETRON 4 MG/2 ML VIAL IVP PRN (15:46)
[2017-12-08] MEDS: MORPHINE 2 MG/ML SYRINGE IVP PRN ×3 (16:54→21:52)
[2017-12-08] MEDS: SODIUM CHLORIDE 0.9% 1,000 ML IV SCH ×2 (16:57→22:55)
[2017-12-08] MEDS: SODIUM CHLORIDE FLUSH 0.9% 10 ML SYRINGE IVP SCH ×2 (16:58→23:46)
--- NOTE | 2017-12-08 18:58 | HISTORY & PHYSICAL EXAMINATION ---
DATE OF SERVICE: 12/08/2017 Physician: Sravani Mo MD PRIMARY CARE PROVIDER: Dr. Krueger, [facility]. ADMITTING PROVIDER: Sravani Mo M.D. CHIEF COMPLAINT: Sudden onset abdominal pain, agonizing, since last night. HISTORY OF PRESENT ILLNESS: History is from his , Dr. Lord, and review of [facility] notes from Dr. Krueger. Mr. Bolivar is a 67-year-old white male who has mantle cell lymphoma on the Sunesis study. He has had it for 5 years and has had success of treatment regimes. He will have initial response to a treatment plan and then recurrence or new disease. His most recent treatment was with an Ommaya reservoir and methotrexate intracerebrally for lymphoma to the brain in July of 2017. He had cell counts of the reservoir done with a tap 11/29/17 and was clear. He had been transitioned to Revlimid until September of 2017. He was not responding and he was noted to have increasing tumor growth with this and abdominal lymphadenopathy and abdominal distension. He was starting to develop left lower quadrant groin pain because of the tumor growth. CT was showing distended bowel in the RLQ. He is in the process of being evaluated for experimental protocol. He has not had any treatment at all since September of this year. With his 11/30/17 note, Dr. Krueger discussed the risk of bowel perforation. He felt that it would be a fatal event if that happened. Steroids were increased with that visit. He was just seen by his oncologist yesterday. His LDH level was down 100 points, and even though he was symptomatic with left lower groin pain, the family had a glimmer of hope that maybe they would be able to start the experimental protocol and buy him more time. Steroid dose was lowered. They had come back from [place] yesterday where he had walked the beach, went grocery shopping, and he had gone upstairs in the evening to lie down. When his checked on him, she found him to be moss, clammy, and complaining of agonizing abdominal pain, but he did not want to call Dr. Krueger and he did not want to come to the emergency room. They were well aware that this may have been a bowel perforation and that he was at risk for this according to what they knew of his disease state with Dr. Krueger. He spent the night in bed, tossing and turning. She gave him a couple of Tylenol and he seemed to do better. This morning around 4 a.m., he got up to go downstairs to sit in a recliner to see if that would help. She followed up on him an hour and a half later and found him to be glazed, confused, and decided to call an ambulance. In the emergency room, he is afebrile at 37 degrees, tachycardic in the 120s with a blood pressure of 115/75 and oxygenating at 94% on room air. His abdomen was moderately distended and diffusely tender, but not rigid and there is no pulsatile mass. CT of the abdomen shows large masses that have enlarged since last April with a large cavitating mass perforating to the right anterior mid abdomen with a large amount of free air. He was felt to be septic with peritonitis. Dr. Whitten, general surgery, was consulted. Dr. Whitten feels that this patient is not a candidate for any type of surgery much less at this institution. The patient's asked for transfer to [facility]. We spoke to Dr. Krueger who is willing to accept this patient in transfer, but even Dr. Krueger felt that there was not much more they were going to be offering this patient from an acute abdominal treatment perspective. Unfortunately, [facility] does not have a bed. The patient will now be admitted to our hospital. His is well aware that we do not have any ICU beds available at this time. We will not be able to resuscitate him with pressors and ICU care. The most we can offer him is IV antibiotics, pain management, nausea management, and see what happens. Our anticipation is that he has a very grim prognosis and I do not know if he will survive this. I did offer to transfer the patient to an outside facility beyond [facility] and she declines at this time. PAST MEDICAL HISTORY: Mantle cell tumor. The says he has no other comorbidities. He does not have high blood pressure, diabetes, emphysema, dyslipidemia. ALLERGIES: ALLERGIC TO PENICILLIN, LEVAQUIN, AND HAZELNUTS. MEDICATIONS 1. Last on prescriptions are dexamethasone 4 mg p.o. b.i.d. Those were increased yesterday. 2. Valacyclovir 500 mg p.o. b.i.d. 3. Allopurinol 300 mg p.o. 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 They are from the [facility]. He and his have been for 48 years. [place] moved [place] after visiting his in-laws here several times. He really liked here, especially with the [place] touch and they moved here in his senior living. He smoked up until the mid 1980s, but rarely did more than a few cigarettes a day. He never had a history of alcohol abuse or recreational substance abuse. CODE STATUS: DO NOT RESUSCITATE. FAMILY HISTORY: Dad in his 90s after a series of strokes. He in this hospital. Mom at age 85 of complications of progressive multifocal aphasia. He has siblings, but they are all healthy and his 2 children are healthy. REVIEW OF SYSTEMS: These were obtained from the . The patient himself is in extreme distress from agonizing abdominal pain. CONSTITUTIONAL: He is fatigued, has had some weight loss over the last few months, but no fevers or chills. Over the last few weeks his ECOG dropped to 2. Spending more time in the chair. ENT: He has an Ommaya reservoir in the scalp, but denies blurred vision. When he had the lymphoma in his brain, he had quite a bit of visual changes, headaches, but those have all resolved since July. PULMONARY: Denies coughing, wheezing, chest congestion. He has no history of asthma. CARDIAC: Denies palpitations, edema, orthopnea. No history of heart disease. GASTROINTESTINAL: Positive acutely overnight. He has been having constipation and bowel changes over the last few months attributed to these bowel masses. GENITOURINARY: Denies urgency, frequency, dysuria, flank pain. JOINTS: Negative. SKIN: Negative. PSYCHIATRIC: Personality changes with his July diagnosis, but his says that he has gone back to baseline once he got the Ommaya reservoir and treatment. PRODUCTION SUPPORT SUPERVISOR: Denies syncope, seizures. Memory loss has been subtle. PERFORMANCE STATUS: Overall, she describes a remarkably intact performance status. Even with his diagnosis 5 years ago, the patient has been active, travels, able to drive. He takes walks on the beach with her. He took a walk with his last night before he went upstairs to go to bed. He had some temporary personality changes in July, but he went back to baseline quite quickly, so even though he has been sick for 5 years he has done really well until the last couple of weeks. PHYSICAL EXAMINATION VITAL SIGNS: He has remained afebrile. T-max in the ER is 37.2. He has been consistently tachycardic in the 120s to 130s since being here. Blood pressure 112/70, respirations 17, and he is 92% on room air. GENERAL: He is a balding, middle-aged, white male who looks stated age. Bright red cheeks, glazed eyes and grimacing of abdominal pain when I wake him up from his morphine dose. HEAD AND NECK: Unremarkable other than the Ommaya reservoir in the top right scalp. Indentation in his skull. Pupils are reactive. Sclerae are nonicteric. Oral mucosa is dry. Voice is intact. Speech is normal. Neck is supple. Shotty adenopathy. LUNGS: Coarse tubular breath sounds, but no tachypnea, no increased respiratory effort. He does not have crackles, rhonchi, or wheezing. HEART: PMI is normally placed. It is tachycardic with a fast thready rhythm. ABDOMEN: Diffusely tympanitic and distended, grimaces with left lower quadrant pain on palpation. Infrequent bowel sound. I think I only heard 1 in 2 minutes. No rebound or guarding. EXTREMITIES: Warm. No clubbing, cyanosis, or edema. Homans' negative. NEUROLOGIC: He wakes to my light touch on his shoulder in the gurney. When he wakes, he immediately recognizes his , attempts to lick his lips because his mouth is so dry and he has been mouth breathing. He has got slightly slurred speech, takes a moment for him to recollect where he is and why he is here, but he can follow commands. He moves all extremities spontaneously because of his pain in an effort to try and get comfortable. LABORATORY DATA: White cell count is 5.5, hemoglobin 13.6, hematocrit 39.8, platelets 186. Sodium 126, potassium 4.4, BUN 31, creatinine 1. Lactic acid is 4. Glucose is 127. Urinalysis is negative for infection. His abdominal x-ray initially done in the emergency room before the CT showed multiple dilated small bowel loops suspicious for small- bowel obstruction. His diaphragms were not completely visualized, so inaccurate evaluation for free air. A CT of the abdomen done subsequently shows free air in the abdomen largely in the anterior and superior abdomen with the right mid abdominal free fluid largely in the right upper quadrant and right mid abdomen along the margins of the liver. Free fluid is seen in the mesentery and left lower quadrant. Mesenteric edema. There is significant increase in the size of multiple intra-abdominal soft tissue masses with the largest mass now measuring 15 x 12 x 14 cm. It is cavitating and thick walled and surrounds a loop of bowel seen in the right mid abdomen. There is a defect seen along the right anterior aspect consistent with a focal area of perforation that is the origin of the pneumoperitoneum. He has thickening and nodularity of the peritoneum of the pelvis. Thickening and nodularity seen in the perineum extending into the right inguinal hernia. ASSESSMENT AND PLAN 1. Peritonitis from perforated bowel secondary to compression with mantle cell tumor mass. This patient is unfortunately at high risk for succumbing to this current injury. The is aware. The patient is aware. They said that even though they have been anticipating this possibility for months, the reality is now upon them and quite overwhelming. While the wants transfer to [facility] because she just feels more comfortable having her under the care of Dr. Krueger, she is not willing to transfer him to another facility as she awaits for a bed at [facility] and would like to be admitted to us. She is aware that I do not have Intensive Care Unit capability at this point in time because our Intensive Care Unit is full. She is aware that I will not be using drugs such as Levophed or dopamine to elevate his blood pressure. Plan a. Admit the patient to Med/Surg. b. IV antibiotics with cefoxitin and Flagyl will continue. c. ATTESTATION: The patient will be admitted for less than 96 hours. Frequent vital checks. Manage symptoms with regard to pain, fever, nausea as best we can. Repeat lactic acid in [address] Krueger has already been consulted. 2. DO NOT RESUSCITATE STATUS. 3. Deep venous thrombosis prophylaxis will be LAVON ceballos. TD: 12/08/2017 16:39 LATISHA
[2017-12-08] MEDS: cefOXitin 2 GM in SODIUM CHLORIDE 0.9% MINIBAG 100 ML IV SCH (22:14)
--- NOTE | 2017-12-08 23:32 | CONSULTATION NOTE ---
DATE OF SERVICE: 12/08/2017 Physician: Karan Whitten MD REFERRING PHYSICIAN: Sheron Lord M.D. REASON FOR REFERRAL: Acute abdomen. HISTORY OF PRESENT ILLNESS: The patient is a 67-year-old male with a history of mantle cell lymphoma intra-abdominally. He has had a previous chemotherapy and stem cell transplant. Recently, the tumor has returned with him now starting experimental chemotherapy unknown type at [facility]. He now presents with diffuse abdominal pain starting the night prior to this visit. This is the first time he has had this severe pain. He has had small bowel obstructions in the past, but those were different. He has had no significant nausea, vomiting, or diarrhea. He then had a CT scan of his abdomen and pelvis which shows large masses being present in the abdomen, most likely the mantle cell lymphoma. He has free air and fluid secondary to perforated viscus. PAST MEDICAL HISTORY: Mantle cell lymphoma. PAST SURGICAL HISTORY: Tonsillectomy and adenoidectomy. MEDICATIONS 1. Valtrex. 2. Zyrtec. 3. Flonase. 4. Sudafed. 5. Robitussin. 6. Unknown chemotherapy. ALLERGIES 1. PENICILLIN. 2. LEVOFLOXACIN. HABITS: The patient socially uses alcohol. Denies any smoking or drug use. FAMILY HISTORY: Noncontributory. SOCIAL HISTORY: The patient is . REVIEW OF SYSTEMS GASTROINTESTINAL: Acute abdominal pain. CONSTITUTIONAL: Not feeling well. A 12-point review of systems was obtained with pertinent positives discussed and all others being negative. PHYSICAL EXAMINATION GENERAL: The patient looks lethargic. He is "wakeable" and able to communicate giving a history. HEENT: Eyes are nonicteric. NECK: No lymphadenopathy. HEART: Tachycardic. LUNGS: Diminished. ABDOMEN: Diffusely tender with peritoneal signs. No hernias. EXTREMITIES: No edema or cyanosis. NEUROLOGIC: The patient appears to be neurologically intact without any deficit. PSYCHOLOGIC: The patient is lethargic but is able to answer questions. DIAGNOSTIC DATA: CT scan of the abdomen and pelvis, see history of present illness. Sodium is 126, potassium 4.4, creatinine 1, lactic acid 4.3, white blood cell count of 5, hemoglobin 14. ASSESSMENT: Acute abdomen secondary to perforated viscus, most likely from the small bowel, but also possibly from the colon. He has these large lymphoma areas in his abdomen that is enveloping the small intestine. This is not resectable or operable. I would recommend palliative therapy at the current time. I have discussed this with his . She would like for him to be transferred down to [facility] in order to see if there is any therapy that they may be able to institute there. PLAN 1. Palliative care. 2. We will try and transfer the patient down to [facility] per the 's request. Dr. Lord will be working on this. TD: 12/08/2017 14:22
[2017-12-08] MEDS: LORazepam 2 MG/ML VIAL IVP PRN (23:45)
[2017-12-09] MEDS: oxyCODONE 5 MG TABLET PO PRN ×2 (03:37→08:17)
[2017-12-09] MEDS: LORazepam 2 MG/ML VIAL IVP PRN ×2 (03:37→08:13)
[2017-12-09] MEDS: SODIUM CHLORIDE FLUSH 0.9% 10 ML SYRINGE IVP PRN ×2 (03:47→08:49)
[2017-12-09 05:55] LABS: BASOPHILS % (AUTO) 0.4 %; EOSINOPHILS % (AUTO) 0.3 %; LYMPHOCYTES # (AUTO) 1.5 10^3/uL (1.5-3.5); MEAN CORPUSCULAR HEMOGLOBIN 32.6 pg (27.0-31.0); MEAN CORPUSCULAR HGB CONC 32.6 g/dL (32.0-36.0); MEAN CORPUSCULAR VOLUME 99.9 fL (80.0-94.0); MEAN PLATELET VOLUME 7.6 fL (7.4-11.4); MONOCYTES # (AUTO) 0.4 10^3/uL (0.0-1.0); MONOCYTES % (AUTO) 5.6 %; NEUTROPHILS # (AUTO) 5.6 10^3/uL (1.5-6.6); NEUTROPHILS % (AUTO) 73.7 %; PLT - PLATELET COUNT 154 10^3/uL (130-450); RED BLOOD COUNT 3.37 10^6/uL (4.70-6.10); RED CELL DISTRIBUTION WIDTH 17.3 % (12.0-15.0); WHITE BLOOD COUNT 7.6 x10^3/uL (4.8-10.8)
[2017-12-09] MEDS: cefOXitin 2 GM in SODIUM CHLORIDE 0.9% MINIBAG 100 ML IV SCH ×2 (05:58→13:28)
[2017-12-09 06:08] LABS: ALBUMIN 2.1 g/dL (3.2-5.5); ALBUMIN/GLOBULIN RATIO 0.9 (1.0-2.2); BILIRUBIN,TOTAL 0.9 mg/dL (0.2-1.0); CALCIUM 7.5 mg/dL (8.5-10.3); CREATININE 1.1 mg/dL (0.6-1.2); TOTAL PROTEIN 4.5 g/dL (6.7-8.2)
[2017-12-09] MEDS: metroNIDAZOLE 500 MG/100 ML 500 MG/100 ML BAG IV SCH (08:00)
[2017-12-09] MEDS: SODIUM CHLORIDE FLUSH 0.9% 10 ML SYRINGE IVP SCH (08:19)
[2017-12-09] MEDS ORDERED: MORPHINE PCA 50 MG IV PRN ×2 (08:40→13:59)
[2017-12-09] MEDS ORDERED: MORPHINE 2 MG/ML SYRINGE IVP SCH (08:42)
[2017-12-09] MEDS ORDERED: POLYETHYLENE GLYCOL 3350 17 GM PACKET PO SCH (09:00)
[2017-12-09] MEDS: SODIUM CHLORIDE 0.9% 1,000 ML IV SCH (11:20)
[2017-12-09] MEDS ORDERED: CARBOXYMETHYLCELLULOSE OPHTH DROPS EACHEYE PRN (14:00)
[2017-12-09] MEDS ORDERED: HALOPERIDOL 5 MG/ML VIAL IVP PRN (14:00)
[2017-12-09] MEDS ORDERED: ACETAMINOPHEN 650 MG SUPP PR PRN (14:00)
[2017-12-09] MEDS ORDERED: MINERAL OIL/PETROLAT OPHTH OINT EACHEYE PRN (14:00)
--- NOTE | 2017-12-09 14:09 | PROVIDER PROGRESS NOTE ---
Subjective - Prog Note Date Prog Note Date: 12/09/17 Prog Note Time: 14:07 - Subjective Subjective: History daughters, are at the bedside. Overnight he seems to have settled down with regards to the agonizing pain. But he is becoming increasingly confused, increasingly more lethargic. Whereas yesterday he had tachycardia with a maintain blood pressure, he is now becoming hypotensive with his tachycardia. I started a DIETICIAN to help him with this pain but he is not strong enough nor alert enough to be able to do the DIETICIAN. He cries out in pain. I have spoken to his oncologist, Dr. Krueger, and Dr. Krueger also feels that the patient will not survive this event. He has already spoken to the yesterday evening. And wanted to check in with us today when I had this conversation. Current Medications - Current Medications Current Medications: Active Medications Acetaminophen (Tylenol) 650 mg RI Q4H PRN PRN Reason: Fever >101 Atropine Sulfate (Isopto Atropine 1% Ophth Drops) 1 - 4 drops SL Q2H PRN PRN Reason: Excessive secretions Carboxymethylcellulose (Refresh 1% Ophth Drops) 1 drops EACHEYE QID PRN PRN Reason: Dry Eye Haloperidol (Haldol Inj) 0.5 mg IVP Q6H PRN PRN Reason: Nausea / Vomiting Lorazepam (Ativan Inj (Vial)) 0.5 mg IVP Q2H PRN PRN Reason: Anxiety Last Admin: 12/09/17 08:13 Dose: 0.5 mg Morphine Sulfate (Morphine) 4 mg IVP Q2H PRN PRN Reason: Pain 8 to 10 Last Admin: 12/08/17 21:52 Dose: 4 mg Morphine Sulfate/Sodium Chloride (Morphine Communicable Disease Specialist (Use Communicable Disease Specialist Order Set)) 50 mg IV DIETICIAN PRN; Protocol PRN Reason: PAIN Multi-Ingred Cream/Lotion/Oil/Oint (Lubrifresh Pm Ophth Oint) 1 applic EACHEYE QPM PRN PRN Reason: Dry Eye Ondansetron HCl (Zofran Inj) 4 mg IVP Q6HR PRN PRN Reason: Nausea / Vomiting Ondansetron HCl (Zofran Odt) 4 mg TL Q6HR PRN PRN Reason: Nausea / Vomiting Sodium Chloride (Normal Saline Flush 0.9%) 10 ml IVP PRN PRN PRN Reason: NEEDED PER PROVIDER ORDERS Last Admin: 12/09/17 08:49 Dose: 10 ml Sodium Chloride (Normal Saline Flush 0.9%) 10 ml IVP 0100,0900,1700 ADALBERTO Last Admin: 12/09/17 08:19 Dose: 10 ml Valacyclovir HCl [Valtrex] 500 mg PO BID 12/18/15 Allopurinol [Allopurinol] 300 mg PO DAILY 12/08/17 Dexamethasone [Dexamethasone] 4 mg PO BID 12/08/17 Objective - Vital Signs/Intake & Output Reviewed Vital Signs: Yes Vital Signs: Vital Signs x48h Temp Pulse Resp BP Pulse Ox 12/09/17 07:48 36.8 C 114 H 18 91/52 L 93 Intake & Output: Intake & Output 12/06/17 12/07/17 12/08/17 12/09/17 23:59 23:59 23:59 23:59 Intake Total 3260 1520.000 Output Total 500 900 Balance 2760 620.000 - Objective General Appearance: positive: Severe distress, Other (face was red and flushed yesterday. today, pale. no longer diaphoretic.) Eyes Bilateral: positive: PERRL ENT: positive: Dry mucous membranes Neck: negative: Stiff neck, Carotid bruit Respiratory: positive: Chest non-tender. negative: Wheezes, Rales, Rhonchi Cardiovascular: positive: Regular rate & rhythm, Tachycardia. negative: Gallop/ S4, Friction rub Abdomen: positive: Guarding, Rebound, Other (rigid abd today. no bowel sounds.) Skin: positive: Dry Extremities: positive: No pedal edema Neurologic/Psychiatric: positive: Motor nml, Disoriented to place, Disoriented to time - Lab Results Fish Bones: 12/09/17 05:35 12/09/17 05:35 Other Labs: Lab Results x24hrs 12/09/17 12/09/17 12/09/17 Range/Units 10:35 05:35 05:35 WBC 7.6 (4.8-10.8) x10^3/uL RBC 3.37 L (4.70-6.10) 10^6/uL Hgb 11.0 L (14.0-18.0) g/dL Hct 33.7 L (42.0-52.0) % MCV 99.9 H (80.0-94.0) fL MCH 32.6 H (27.0-31.0) pg MCHC 32.6 (32.0-36.0) g/dL RDW 17.3 H (12.0-15.0) % Plt Count 154 (130-450) 10^3/uL MPV 7.6 (7.4-11.4) fL Neut # 5.6 (1.5-6.6) 10^3/uL Lymph # 1.5 (1.5-3.5) 10^3/uL [place] # 0.4 (0.0-1.0) 10^3/uL Eos # 0.0 (0.0-0.7) 10^3/uL Baso # 0.0 (0.0-0.1) 10^3/uL Absolute Nucleated RBC 0.00 x10^3/uL Nucleated RBC % 0.0 /100WBC Sodium 130 L (135-145) mmol/L Potassium 4.5 (3.5-5.0) mmol/L Chloride 100 L (101-111) mmol/L Carbon Dioxide 21 (21-32) mmol/L Anion Gap 9.0 (6-13) BUN 28 H (6-20) mg/dL Creatinine 1.1 (0.6-1.2) mg/dL Estimated GFR (MDRD) 66 L (>89) Glucose 117 H (70-100) mg/dL Lactic Acid 2.2 (0.5-2.2) mmol/L Calcium 7.5 L (8.5-10.3) mg/dL Total Bilirubin 0.9 (0.2-1.0) mg/dL AST 23 (10-42) IU/L ALT 19 (10-60) IU/L Alkaline Phosphatase 47 (42-121) IU/L Total Protein 4.5 L (6.7-8.2) g/dL Albumin 2.1 L (3.2-5.5) g/dL Globulin 2.4 (2.1-4.2) g/dL Albumin/Globulin Ratio 0.9 L (1.0-2.2) Assessment/Plan - Problem List (1) Shock, septic Impression: from peritonitis from bowel perforation. We admitted with low expectations and did not put in ICU. He has not really responded and BP lower. Lactic acid came down to 2.2 from 4.8 but the overall picture is still a rigid abd, no chance for surgery, and a high tumor load. It's been overnight and into the early afternoon now. I saw him this morning and this afternoon. long talk with his and daughters. they would like to now transition to comfort measures only and as such I have stopped abx, stopped IVF, stopped labs and vital checks. Will provide meds with goal towards control of symptoms. (2) Abdominal pain Impression: change DIETICIAN to continuous infusion morphine.
[2017-12-09] MEDS: MORPHINE 2 MG/ML SYRINGE IVP PRN (21:43)
[2017-12-10] MEDS: LORazepam 2 MG/ML VIAL IVP PRN ×4 (01:23→20:22)
[2017-12-10] MEDS: SODIUM CHLORIDE FLUSH 0.9% 10 ML SYRINGE IVP SCH ×3 (01:24→16:36)
[2017-12-10 05:13] VITALS: BP 108/70
[2017-12-10] MEDS: SODIUM CHLORIDE FLUSH 0.9% 10 ML SYRINGE IVP PRN ×2 (05:19→20:22)
[2017-12-10] MEDS: MORPHINE 2 MG/ML SYRINGE IVP PRN ×3 (05:19→13:40)
[2017-12-10] MEDS: ATROPINE 1% OPHTH DROPS 2 ML SL PRN ×2 (05:31→22:42)
[2017-12-10 05:50] LABS: BASOPHILS # (AUTO) 0.1 10^3/uL (0.0-0.1); BASOPHILS % (AUTO) 1.1 %; EOSINOPHILS % (AUTO) 0.2 %; HGB - HEMOGLOBIN 10.8 g/dL (14.0-18.0); LYMPHOCYTES % (AUTO) 14.3 %; MEAN CORPUSCULAR HEMOGLOBIN 32.6 pg (27.0-31.0); MEAN CORPUSCULAR HGB CONC 32.6 g/dL (32.0-36.0); MONOCYTES # (AUTO) 0.5 10^3/uL (0.0-1.0); MONOCYTES % (AUTO) 6.7 %; NEUTROPHILS # (AUTO) 5.4 10^3/uL (1.5-6.6); NEUTROPHILS % (AUTO) 77.7 %; PLT - PLATELET COUNT 171 10^3/uL (130-450); RED BLOOD COUNT 3.31 10^6/uL (4.70-6.10); RED CELL DISTRIBUTION WIDTH 17.5 % (12.0-15.0); WHITE BLOOD COUNT 6.9 x10^3/uL (4.8-10.8)
[2017-12-10 06:05] LABS: ALBUMIN 2.3 g/dL (3.2-5.5); ALBUMIN/GLOBULIN RATIO 0.8 (1.0-2.2); BILIRUBIN,TOTAL 0.9 mg/dL (0.2-1.0); CALCIUM 8.1 mg/dL (8.5-10.3); CREATININE 1.6 mg/dL (0.6-1.2); TOTAL PROTEIN 5.2 g/dL (6.7-8.2)
[2017-12-10] MEDS ORDERED: MORPHINE PCA 50 MG IV PRN (13:51)
--- NOTE | 2017-12-10 13:59 | PROVIDER PROGRESS NOTE ---
Subjective - Prog Note Date Prog Note Date: 12/10/17 Prog Note Time: 13:57 - Subjective Pt reports feeling: No change Subjective: he wakens to voice and will grimace and tell me he has no pain "it's a zero" but when I ask about the grimacing he can't say why he does it. does yell out in pain when aides turn him for skin care and linda care. no flatus.I've stopped abx and IV and have him at comfort care only. labs were done this am by mistake. BP is 108 last time. Creat is slowly rising. No fever. WBC stable. Current Medications - Current Medications Current Medications: Active Medications Acetaminophen (Tylenol) 650 mg AK Q4H PRN PRN Reason: Fever >101 Atropine Sulfate (Isopto Atropine 1% Ophth Drops) 1 - 4 drops SL Q2H PRN PRN Reason: Excessive secretions Last Admin: 12/10/17 05:31 Dose: 2 drops Carboxymethylcellulose (Refresh 1% Ophth Drops) 1 drops EACHEYE QID PRN PRN Reason: Dry Eye Haloperidol (Haldol Inj) 0.5 mg IVP Q6H PRN PRN Reason: Nausea / Vomiting Lorazepam (Ativan Inj (Vial)) 0.5 mg IVP Q2H PRN PRN Reason: Anxiety Last Admin: 12/10/17 13:49 Dose: 0.5 mg Morphine Sulfate (Morphine) 4 mg IVP Q2H PRN PRN Reason: Pain 8 to 10 Last Admin: 12/10/17 13:40 Dose: 4 mg Morphine Sulfate/Sodium Chloride (Morphine Photo Graphics Librarian (Use Photo Graphics Librarian Order Set)) 50 mg IV AVIATION MAINTENANCE TECHNICIAN PRN; Protocol PRN Reason: PAIN Multi-Ingred Cream/Lotion/Oil/Oint (Lubrifresh Pm Ophth Oint) 1 applic EACHEYE QPM PRN PRN Reason: Dry Eye Ondansetron HCl (Zofran Inj) 4 mg IVP Q6HR PRN PRN Reason: Nausea / Vomiting Ondansetron HCl (Zofran Odt) 4 mg TL Q6HR PRN PRN Reason: Nausea / Vomiting Sodium Chloride (Normal Saline Flush 0.9%) 10 ml IVP PRN PRN PRN Reason: NEEDED PER PROVIDER ORDERS Last Admin: 05/18/18 05:19 Dose: 10 ml Sodium Chloride (Normal Saline Flush 0.9%) 10 ml IVP 0100,0900,1700 ADALBERTO Last Admin: 12/10/17 11:58 Dose: Not Given Valacyclovir HCl [Valtrex] 500 mg PO BID 12/18/15 Allopurinol [Allopurinol] 300 mg PO DAILY 12/08/17 Dexamethasone [Dexamethasone] 4 mg PO BID 12/08/17 Objective - Vital Signs/Intake & Output Reviewed Vital Signs: Yes Vital Signs: Vital Signs x48h Resp 12/10/17 11:00 16 12/10/17 09:00 16 Intake & Output: Intake & Output 12/07/17 12/08/17 12/09/17 12/10/17 23:59 23:59 23:59 23:59 Intake Total 3260 3660.796 3011 Output Total 500 1225 350 Balance 2760 555.000 650 - Objective General Appearance: positive: Mild distress, Other (asleep, eyes closed but opens them when I walk in room and says "hi") Eyes Bilateral: positive: PERRL ENT: positive: Dry mucous membranes, Other (oral mucosa getting impregnator and drier and impregnator and drier) Neck: positive: No JVD. negative: Stiff neck, Carotid bruit Respiratory: positive: Chest non-tender, Rhonchi. negative: Wheezes, Rales ( starting to develop and atropine drops ordered) Cardiovascular: positive: Regular rate & rhythm, Tachycardia. negative: Gallop/ S4, Friction rub Abdomen: positive: Tenderness (diffusely, although he denies pain, when I palpate, he has guarding and grimaces w the pain), Guarding, Abnml bowel sounds (none) Skin: positive: Warm, Dry Extremities: positive: Full ROM, Pedal edema Neurologic/Psychiatric: positive: CN's nml (2-12), Motor nml, Disoriented to place, Disoriented to time - Lab Results Fish Bones: 12/10/17 05:30 12/10/17 05:30 Other Labs: Lab Results x24hrs 12/10/17 12/10/17 Range/Units 05:30 05:30 WBC 6.9 (4.8-10.8) x10^3/uL RBC 3.31 L (4.70-6.10) 10^6/uL Hgb 10.8 L (14.0-18.0) g/dL Hct 33.0 L (42.0-52.0) % MCV 100.0 H (80.0-94.0) fL MCH 32.6 H (27.0-31.0) pg MCHC 32.6 (32.0-36.0) g/dL RDW 17.5 H (12.0-15.0) % Plt Count 171 (130-450) 10^3/uL MPV 8.0 (7.4-11.4) fL Neut # 5.4 (1.5-6.6) 10^3/uL Lymph # 1.0 L (1.5-3.5) 10^3/uL [place] # 0.5 (0.0-1.0) 10^3/uL Eos # 0.0 (0.0-0.7) 10^3/uL Baso # 0.1 (0.0-0.1) 10^3/uL Absolute Nucleated RBC 0.00 x10^3/uL Nucleated RBC % 0.1 /100WBC Sodium 134 L (135-145) mmol/L Potassium 5.0 (3.5-5.0) mmol/L Chloride 102 (101-111) mmol/L Carbon Dioxide 20 L (21-32) mmol/L Anion Gap 12.0 (6-13) BUN 41 H (6-20) mg/dL Creatinine 1.6 H (0.6-1.2) mg/dL Estimated GFR (MDRD) 43 L (>89) Glucose 133 H (70-100) mg/dL Calcium 8.1 L (8.5-10.3) mg/dL Total Bilirubin 0.9 (0.2-1.0) mg/dL AST 26 (10-42) IU/L ALT 20 (10-60) IU/L Alkaline Phosphatase 61 (42-121) IU/L Total Protein 5.2 L (6.7-8.2) g/dL Albumin 2.3 L (3.2-5.5) g/dL Globulin 2.9 (2.1-4.2) g/dL Albumin/Globulin Ratio 0.8 L (1.0-2.2) Assessment/Plan - Problem List (1) Shock, septic Impression: from peritonitis from bowel perforation. We admitted with low expectations and did not put in ICU. He has not really responded and BP lower yesterday but holding on. Lactic acid came down to 2.2 from 4.8 but the overall picture is still a rigid abd, no chance for surgery, and a high tumor load. It's been 2 nights now, and today more distress, more throat and sputum rattling with less and less consiousness. Transitioned to comfort measures only yesterday afternoon. Add scopolamine today to atropine. I have spoken to and daughters about wishes and although they want him home because he would want to be home, it's Wednesday. I spoke to Dr. Baird and I expect to be imminent. As such, keep here. Reassess on Wednesday. (2) Abdominal pain Impression: changed AVIATION MAINTENANCE TECHNICIAN to continuous infusion morphine yesterday. He is still having more and more pain today, increase basal rate to 1 mg/hr from 0.5 and increase MS breakthrough from 2q2 to 2q1.
[2017-12-10] MEDS ORDERED: SCOPOLAMINE PATCH TOP SCH (15:00)
[2017-12-11] MEDS: ATROPINE 1% OPHTH DROPS 2 ML SL PRN (01:10)
[2017-12-11] MEDS: SODIUM CHLORIDE FLUSH 0.9% 10 ML SYRINGE IVP SCH ×3 (07:29→16:15)
[2017-12-11] MEDS: LORazepam 2 MG/ML VIAL IVP PRN ×4 (07:39→16:14)
[2017-12-11] MEDS: SODIUM CHLORIDE FLUSH 0.9% 10 ML SYRINGE IVP PRN ×3 (07:39→18:55)
--- NOTE | 2017-12-11 11:43 | PROVIDER PROGRESS NOTE ---
Subjective - Prog Note Date Prog Note Date: 12/11/17 Prog Note Time: 11:39 - Subjective Subjective: and 2 daughters continue to be at the bedside in [place]. Yesterday he was still awake enough to respond to visitors. 1 of his commanding officers came by to say hi and Mr. Bolivar reached out to shake his hand. Was spending more more time sleeping. Overnight and into this morning he is now not really responding verbally. His eyes open but that is about it. He is starting to have more a more back of throat phlegm production and respiratory rattling. He is getting atropine drops and a scopolamine patch. He is on a morphine drip to control the agonizing pain he had from his ruptured bowel. Occasionally he gets some Ativan. I had to increase his morphine drip from 0.5-1 mg/h yesterday. Has needed minimal IV morphine for breakthrough. Current Medications - Current Medications Current Medications: Active Medications Acetaminophen (Tylenol) 650 mg [place] Q4H PRN PRN Reason: Fever >101 Atropine Sulfate (Isopto Atropine 1% Ophth Drops) 1 - 4 drops SL Q2H PRN PRN Reason: Excessive secretions Last Admin: 12/11/17 01:10 Dose: 2 drops Carboxymethylcellulose (Refresh 1% Ophth Drops) 1 drops EACHEYE QID PRN PRN Reason: Dry Eye Haloperidol (Haldol Inj) 0.5 mg IVP Q6H PRN PRN Reason: Nausea / Vomiting Lorazepam (Ativan Inj (Vial)) 0.5 mg IVP Q2H PRN PRN Reason: Anxiety Last Admin: 12/11/17 11:12 Dose: 0.5 mg Morphine Sulfate (Morphine) 4 mg IVP Q2H PRN PRN Reason: Pain 8 to 10 Last Admin: 12/10/17 13:40 Dose: 4 mg Morphine Sulfate/Sodium Chloride (Morphine Creosoting Engineer (Use Creosoting Engineer Order Set)) 50 mg IV BATTERY HAND PRN; Protocol PRN Reason: PAIN Multi-Ingred Cream/Lotion/Oil/Oint (Lubrifresh Pm Ophth Oint) 1 applic EACHEYE QPM PRN PRN Reason: Dry Eye Ondansetron HCl (Zofran Inj) 4 mg IVP Q6HR PRN PRN Reason: Nausea / Vomiting Ondansetron HCl (Zofran Odt) 4 mg TL Q6HR PRN PRN Reason: Nausea / Vomiting Scopolamine HBr (Transderm-Scop) 1 patch TOP Q3D [facility] Last Admin: 12/10/17 16:36 Dose: 1 patch Sodium Chloride (Normal Saline Flush 0.9%) 10 ml IVP PRN PRN PRN Reason: NEEDED PER PROVIDER ORDERS Last Admin: 12/11/17 11:13 Dose: 10 ml Sodium Chloride (Normal Saline Flush 0.9%) 10 ml IVP 0100,0900,1700 [facility] Last Admin: 12/11/17 07:29 Dose: Not Given Valacyclovir HCl [Valtrex] 500 mg PO BID 12/18/15 Allopurinol [Allopurinol] 300 mg PO DAILY 12/08/17 Dexamethasone [Dexamethasone] 4 mg PO BID 12/08/17 Objective - Vital Signs/Intake & Output Reviewed Vital Signs: Yes Vital Signs: Vital Signs x48h Resp 12/11/17 10:54 16 12/11/17 09:00 18 12/11/17 07:00 16 12/11/17 05:24 16 Intake & Output: Intake & Output 12/08/17 12/09/17 12/10/17 12/11/17 23:59 23:59 23:59 23:59 Intake Total 3260 7814.469 5173 Output Total 500 1225 1125 560 Balance 2760 555.000 25 -560 - Objective General Appearance: positive: Other (eyes closed and do open to 's voice but nonverbal today) Eyes Bilateral: positive: PERRL ENT: positive: Dry mucous membranes Neck: negative: Stiff neck, Carotid bruit Respiratory: positive: Chest non-tender, No respiratory distress, Rhonchi. negative: Wheezes, Rales Cardiovascular: positive: Regular rate & rhythm, Tachycardia. negative: Gallop/ S4, Friction rub Abdomen: positive: Other (rigid, no bowel sounds, still wakes up enough to grimace when I palpate) Extremities: positive: Pedal edema Neurologic/Psychiatric: positive: Other (nonverbal, eyes open) - Lab Results Fish Bones: 12/10/17 05:30 12/10/17 05:30 Assessment/Plan - Problem List (1) Shock, septic Impression: from peritonitis from bowel perforation. We admitted with low expectations and no bed at [facility] where wanted him to be and did not put in ICU. He had not really responded to antibiotics. Lactic acid came down to 2.2 from 4.8 but the overall picture is still a rigid abd, no chance for surgery, and a high tumor load. Transitioned to comfort measures with continuous basal morphine. Dose increased yesterday appears imminent and will continue to support family with frequent visit to bedside to answer their questions. (2) Abdominal pain Impression: changed BATTERY HAND to continuous infusion morphine 12/09. He was still having more and more pain 12/10 and I increased basal rate to 1 mg/hr from 0.5 and increase MS breakthrough from 2q2 to 2q1. So far seems to be controlling the pain.
[2017-12-11] MEDS: MORPHINE 2 MG/ML SYRINGE IVP PRN (18:55)
--- NOTE | 2017-12-11 23:34 | DISCHARGE SUMMARY ---
"Discharge Summary Admit Date: 12/08/17 Discharge Date: 12/11/17 (Time of : 21:30) Discharging Provider: Benigno Mittal MD Primary Care Provider: Yaw Krueger MD Code Status: Do Not Attempt Resuscitation Discharge Disposition: 20 - DIAGNOSES Admission Diagnoses: 1. Peritonitis from perforated bowel secondary to compression with mantle cell tumor mass 2. Mantle cell tumor 3. DVT prophylaxis 4. DO NOT RESUSCITATE status Discharge Diagnoses with Status of Each Condition: 1. Cardiopulmonary arrest: 2. Septic Shock: 3. Generalized peritonitis, perforation of intestine: 4. Mantle cell lymphoma: - HPI History of Present Illness: Patient is a 67-year-old gentleman with a past medical history significant for mantle cell lymphoma on the Sunesis study. He has had it for 5 years and has had success of treatment regimens. He will have initial response to treatment plan and then recurrence or new disease. 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 He had cell counts of the reservoir done with a tap 11/29/2017 and was clear. He had been transitioned to Revlimid until September 2017. He was not responding and he was noted to have increasing tumor growth with this and abdominal lymphadenopathy and abdominal distention. He was starting to develop left lower quadrant groin pain because of the tumor growth. CT was showing distended bowel in the right lower quadrant. He is in the process of being evaluated for experimental protocol. He has not had any treatment at all since September of this year. With his 11/30/2017 note, Dr. Krueger discussed the risk of bowel perforation. He felt bad that it would be a fatal event if that happened. Steroids were increased with that visit. He was just seen by his oncologist yesterday. His LDH level was down 100 points, and even though he was symptomatic with left lower groin pain, the family had a glimmer of hope that maybe they would be able to start the experimental protocol and buy him some more time. Steroid dose was lowered. They did come back from [place] yesterday where he had walked the beach, when grocery shopping, and he had gone upstairs in the evening to lie down. When his checked on him, she found him to be moss, clammy, and complaining of agonizing abdominal pain. He did not want to call Dr. Krueger and he did not want to come to the emergency room at that time. They were well aware that this may have been a bowel perforation and that he was at risk for this according to what they knew his disease state with Dr. Krueger. He spent the night in bed, tossing and turning. She gave him a couple of Tylenol and he seemed to do better. This morning around 4 AM he got up to go downstairs to sit in a recliner to see if that would help. She followed up on him an hour and a half later and found him to be glazed, confused and decided to call an ambulance. In the emergency room, he is afebrile at 37, tachycardic in the 120s with a blood pressure of 115/75 and oxygenating at 94% on room air. His abdomen was moderately distended and diffusely tender, but not rigid and there is no pulsatile mass. CT of the abdomen shows large masses that have enlarged since last April with a large cavitating mass perforating to the right anterior mid abdomen with a large amount of free air. He was felt to be septic with peritonitis. Dr. Whitten, general surgery, was consulted. Dr. Whitten feels that the patient is not a candidate for any type of surgery much less at this institution. The patient's asked for transfer to [facility]. We spoke to Dr. Krueger who is willing to accept the patient in transfer, but even Dr. Krueger felt that there was not much more they were going to be able to offer the patient from an acute abdominal treatment perspective. Unfortunately , [facility] does not have a bed. The patient will now be admitted to our hospital. His is still aware that we do not have any ICU beds available at this time. We will not be able to resuscitate him with pressors and ICU care. The most we can offer him is IV antibiotics, pain management, nausea management, and see what happens. Our anticipation is that he has a very grim prognosis and I do not know if he will survive this. I did offer to transfer the patient to an outside facility beyond [facility] and she declines at this time. - CONSULTS | PROCEDURES Consultations: General surgery Procedures: None - HOSPITAL COURSE Hospital Course: (1) Shock, septic Impression: from peritonitis from bowel perforation. We admitted with low expectations and no bed at [facility] him to be and did not put in ICU. He had not really responded to antibiotics. Lactic acid came down to 2.2 from 4.8 but the overall picture is still a rigid abd, no chance for surgery, and a high tumor load. Transitioned to comfort measures with continuous basal morphine. Dose increased yesterday appears imminent and will continue to support family with frequent visit to bedside to answer their questions. (2) Abdominal pain Impression: changed MOLDED GRID AND PARTS INSPECTOR to continuous infusion morphine 12/09. He was still having more and more pain 12/10 and I increased basal rate to 1 mg/hr from 0.5 and increase MS breakthrough from 2q2 to 2q1. So far seems to be controlling the pain. Eventually the patient past away on 12/01/2017 at 2130 of cardiopulmonary arrest due to a perforated bowel causing septic shock secondary to tumor load from mantle cell lymphoma. The patient was comfortable and his last moments and his was at bedside when he passed. The patient's remains will be released to the home. - ALLERGIES Allergies/Adverse Reactions: Allergies Allergy/AdvReac Type Severity Reaction Status Date / Time Penicillins Allergy Edema Verified 05/22/17 16:23 levofloxacin [From Levaquin] AdvReac Nausea Verified 05/22/17 16:23 hazelnuts Allergy Edema Uncoded 05/22/17 16:23 - MEDICATIONS Home Medications: Ambulatory Orders Medication Instructions Recorded Confirmed Valacyclovir HCl [Valtrex] 500 mg PO BID 12/18/15 12/08/17 Allopurinol [Allopurinol] 300 mg PO DAILY 12/08/17 12/08/17 Dexamethasone [Dexamethasone] 4 mg PO BID 12/08/17 12/08/17 - PHYSICAL EXAM AT DISCHARGE Physical Exam Other/Comments: Breath sounds were absent. No pulse was palpable. Patient was unresponsive. Corneal reflex was negative. Patient had no pupillary response. No heart sounds were heard. The patient had . - LABS Result Diagrams: 12/10/17 05:30 12/10/17 05:30 Other Lab Results: Laboratory Results WBC 6.9 x10^3/uL (4.8-10.8) 12/10/17 05:30 RBC 3.31 10^6/uL (4.70-6.10) L 12/10/17 05:30 Hgb 10.8 g/dL (14.0-18.0) L 12/10/17 05:30 Hct 33.0 % (42.0-52.0) L 12/10/17 05:30 MCV 100.0 fL (80.0-94.0) H 12/10/17 05:30 MCH 32.6 pg (27.0-31.0) H 12/10/17 05:30 MCHC 32.6 g/dL (32.0-36.0) 12/10/17 05:30 RDW 17.5 % (12.0-15.0) H 12/10/17 05:30 Plt Count 171 10^3/uL (130-450) 12/10/17 05:30 MPV 8.0 fL (7.4-11.4) 12/10/17 05:30 Neut # 5.4 10^3/uL (1.5-6.6) 12/10/17 05:30 Lymph # 1.0 10^3/uL (1.5-3.5) L 12/10/17 05:30 [place] # 0.5 10^3/uL (0.0-1.0) 12/10/17 05:30 Eos # 0.0 10^3/uL (0.0-0.7) 12/10/17 05:30 Baso # 0.1 10^3/uL (0.0-0.1) 12/10/17 05:30 Absolute Nucleated RBC 0.00 x10^3/uL 12/10/17 05:30 Nucleated RBC % 0.1 /100WBC 12/10/17 05:30 Sodium 134 mmol/L (135-145) L 12/10/17 05:30 Potassium 5.0 mmol/L (3.5-5.0) 12/10/17 05:30 Chloride 102 mmol/L (101-111) 12/10/17 05:30 Carbon Dioxide 20 mmol/L (21-32) L 12/10/17 05:30 Anion Gap 12.0 (6-13) 12/10/17 05:30 BUN 41 mg/dL (6-20) H 12/10/17 05:30 Creatinine 1.6 mg/dL (0.6-1.2) H 12/10/17 05:30 Estimated GFR (MDRD) 43 (>89) L 12/10/17 05:30 Glucose 133 mg/dL (70-100) H 12/10/17 05:30 Lactic Acid 2.2 mmol/L (0.5-2.2) 12/09/17 10:35 Calcium 8.1 mg/dL (8.5-10.3) L 12/10/17 05:30 Total Bilirubin 0.9 mg/dL (0.2-1.0) 12/10/17 05:30 AST 26 IU/L (10-42) 12/10/17 05:30 ALT 20 IU/L (10-60) 12/10/17 05:30 Alkaline Phosphatase 61 IU/L (42-121) 12/10/17 05:30 Total Protein 5.2 g/dL (6.7-8.2) L 12/10/17 05:30 Albumin 2.3 g/dL (3.2-5.5) L 12/10/17 05:30 Globulin 2.9 g/dL (2.1-4.2) 12/10/17 05:30 Albumin/Globulin Ratio 0.8 (1.0-2.2) L 12/10/17 05:30 Lipase 44 U/L (22-51) 12/08/17 10:20 Urine Color DARK YELLOW 12/08/17 11:10 Urine Clarity CLEAR (CLEAR) 12/08/17 11:10 Urine pH 5.5 PH (5.0-7.5) 12/08/17 11:10 Ur Specific [place] >=1.030 (1.002-1.030) H 12/08/17 11:10 Urine Protein TRACE mg/dL (NEGATIVE) 12/08/17 11:10 Urine Glucose (UA) NEGATIVE mg/dL (NEGATIVE) 12/08/17 11:10 Urine Ketones NEGATIVE mg/dL (NEGATIVE) 12/08/17 11:10 Urine Occult Blood NEGATIVE (NEGATIVE) 12/08/17 11:10 Urine Nitrite NEGATIVE (NEGATIVE) 12/08/17 11:10 Urine Bilirubin NEGATIVE (NEGATIVE) 12/08/17 11:10 Urine Urobilinogen 0.2 (NORMAL) E.U./dL (NORMAL) 12/08/17 11:10 Ur Leukocyte Esterase NEGATIVE (NEGATIVE) 12/08/17 11:10 Ur Microscopic Review NOT INDICATED 12/08/17 11:10 Urine Culture Comments NOT INDICATED 12/08/17 11:10 - DIAGNOSTIC IMAGING Diagnostic Imaging Results: Final report reviewed Diagnostic Imaging Results Comments: Abdominal x-ray Impression: 1. Multiple dilated small bowel loops, suspicious for small bowel obstruction. 2. Free air or abdominal collections of intra-abdominal gas cannot be excluded , as discussed above. CT imaging with contrast is recommended for further evaluation CT abdomen/pelvis Impression: 1. Extensive pneumoperitoneum and intra-abdominal free fluid, largely in the right mid and upper abdomen, with enhancement of peritoneum. 2. Significant increase in size of intra-abdominal cavitating soft tissue masses compared to 05-22-2017 involving small bowel loops. Defect involving the right mid abdominal mass, which surrounds and involves a right mid abdominal small bowel loop which is the site and origin of perforation. 3. Extensive peritoneal thickening throughout the abdomen and pelvis with multiple focal mesenteric lymph nodes. - FOLLOW UP Follow Up: Patient's remains released to home. - TIME SPENT Time Spent in Discharge (Minutes): 35"
== END 2017-12-11 21:30 | disposition expired | DRG 871 ==
LOC: EDUNIT# → ED 09:54 → MS2 15:46
PROVIDERS: ADMIT Specialist; ATTEND Specialist
DX: A41.9 Sepsis, unspecified organism (principal); K65.9 Peritonitis, unspecified; Z85.72 Personal history of non-Hodgkin lymphomas; K63.1 Perforation of intestine (nontraumatic); R65.21 Severe sepsis with septic shock; C83.13 Mantle cell lymphoma, intra-abdominal lymph nodes; Z66 Do not resuscitate; Z51.5 Encounter for palliative care
CPT/HCPCS: 36415; 51701; 74019; 74177; 80053; 81001; 81003; 83605; 83690; 85025; 87040; 87086; 96361; 96365; 96375; 96376; 99284